=== PATIENT | male | born 1965 | race Caucasian/White ===

== ENCOUNTER → 2017-03-15 12:09 | Outpatient (REF) | payer OTHER, SELFPAY ==
[2017-03-18 15:36] LABS: Amphetamine/Metha Screen,Urine Positive ng/mL (<1000); Barbiturates Screen,Urine Negative ng/mL (<200); Benzodiazepines Screen,Urine Negative ng/mL (200); Cannabinoid Screen,Urine Negative ng/mL (<50); Cocaine Screen,Urine Negative ng/g (<300); Methadone Screen,Urine Negative ng/mL (<300); Opiate Screen,Urine Positive ng/mL (<300); Phencyclidine Screen,Urine Negative ng/mL (<25)
== END ==
LOC: LAB 12:09
PROVIDERS: Visit Provider Emergency Medicine
DX: Z79.899 Other long term (current) drug therapy (principal)
CPT/HCPCS: 80305

== ENCOUNTER 2017-03-23 01:45 | Emergency (ER) | payer OTHER, SELFPAY ==
[2017-03-23 01:53] VITALS: BP 139/78; PULSE 87; RESP 20; TEMP 36.9; O2SAT 95; BMI 27.7
--- NOTE | 2017-03-23 02:03 | XR_ITS ---
XR tibia fibula RT 2V CLINICAL INDICATION: Posttraumatic pain ITS.REASON: pain ORDERING PHYSICIAN: Usama Erazo MD PATIENT AGE: 51 years COMPARISON: None FINDINGS: No fracture or dislocation. No radio opaque foreign body. IMPRESSION: Negative right tib-fib
--- NOTE | 2017-03-23 02:03 | XR_ITS ---
XR tibia fibula LT 2V CLINICAL INDICATION: Posttraumatic pain ITS.REASON: pain ORDERING PHYSICIAN: Usama Erazo MD PATIENT AGE: 51 years COMPARISON: None FINDINGS: No fracture or dislocation. No lytic or blastic change. No radio opaque foreign body. IMPRESSION: Negative left tib-fib
--- NOTE | 2017-03-23 02:03 | XR_ITS ---
XR knee LT 3V HISTORY: Posttraumatic pain ITS.REASON: pain ORDERING PHYSICIAN: Usama Erazo MD PATIENT AGE: 51 years COMPARISON: None FINDINGS: No fracture or dislocation. No lytic or blastic change. Normal mineralization. Minor osteoarthritic changes involving all 3 compartments No other significant findings IMPRESSION: No acute finding., Mild osteoarthritis
--- NOTE | 2017-03-23 02:30 | HMH.EDLOEX ---
ED Disposition Clinical Impression: Contusion of lower extremity Qualifiers: Encounter type: initial encounter Laterality: unspecified laterality Qualified Code(s): S80.10XA - Contusion of unspecified lower leg, initial encounter Disposition: Home, Self-Care Condition on Discharge: Good Instructions: DI for Contusion Additional Instructions: see pcp for follow up Referrals: Usama Erazo MD [Primary Care Provider] - - Critical Care Critical Care Time: No Attestation: On 03/23/17, the high probability of a clinically significant, sudden or life threatening deterioration of the following system(s) required my full and direct attention, intervention and personal management. The time I documented below is in addition to time spent performing reported procedures but includes the following listed in this critical care notation. Medical Decision Making - Medical Records Medical records reviewed: Yes: I reviewed the patient's medical records. Vital Signs: 03/23/17 01:53 Temperature 98.4 F Temperature Source Oral Pulse Rate [Right Radial] 87 Respiratory Rate 20 Blood Pressure [Left Arm] 139/78 Blood Pressure Mean [Left Arm] 98 Blood Pressure Source [Left Arm] Automatic Cuff Blood Pressure Position [Left Arm] Sitting 02 Sat by Pulse Oximetry 95 Oxygen Delivery Method Room Air - Lab Data Lab results reviewed: Yes: I reviewed the patient's lab results. Orders (Tests/Meds): ORDERS Category Date Time Status XR knee LT 3V Stat Exams 03/23/17 02:03 Ordered XR tibia fibula LT 2V Stat Exams 03/23/17 02:03 Taken XR tibia fibula RT 2V Stat Exams 03/23/17 02:03 Taken - Radiology Data #1 Image(s): Knee, Tib/Fib Image Reviewed: Yes I reviewed the patient's radiology image Preliminary Findings: No Fracture Seen - Travis Inquiry Pt receiving controlled substance: No Lower Extremity Injury HPI - General Chief Complaint: Extremity Injury, Lower Stated Complaint: pain in both legs;200 lb grill fell on him Time Seen by Provider: 03/23/17 02:30 Mode of Arrival: Ambulatory Source of Information: Patient, Medical Record Limitations: No Limitations Description of Symptoms (Recalled from ER Triage Doc. by RN): bilATERAL below the knee pain reports grill fell on him, right leg abrasion - History of Present Illness HPI Narrative: pt with acute lower ext injury earlier today with pain and swelling - grill dropped on lower ext MD complaint: leg injury Onset (ago): hour(s) Type of Injury: blunt Place: home Severity: moderate Context: direct blow - Related Data Home Medications Medication Instructions Recorded Confirmed albuterol sulfate HFA 90 2 puff INHALATION Q6H 03/14/17 03/23/17 mcg/actuation aerosol inhaler aspirin 81 mg tablet,delayed 81 mg PO ONCE 03/14/17 03/23/17 release aspirin 81 mg tablet,delayed 81 mg PO ONCE 03/14/17 03/23/17 release bupropion HCl SR 150 mg tablet,12 150 mg PO QAM tab 03/14/17 03/23/17 hr sustained-release cyclobenzaprine 10 mg tablet 10 mg PO Q8H 03/14/17 03/23/17 diclofenac 1 % topical gel 1 g TOPICAL QID g 03/14/17 03/23/17 furosemide 20 mg tablet 20 mg PO ONCE 03/14/17 03/23/17 furosemide 20 mg tablet 20 mg PO ONCE 03/14/17 03/23/17 gabapentin 800 mg tablet 800 mg PO TID 03/14/17 03/23/17 insulin human U-100 NPH-regulr 40 unit SUB-Q TID ml 03/14/17 03/23/17 70-30 mix 100 unit/mL subcutaneous susp insulin syringe-needle U-100 0.5 See Dose Instructions SQ 03/14/17 03/23/17 mL 31 gauge x 5/16 .MEDSUPPLY #10 each lactulose 10 gram/15 mL oral 10 g PO ONCE 03/14/17 03/23/17 solution lisinopril 40 mg tablet 40 mg PO ONCE 03/14/17 03/23/17 oxycodone 10 mg tablet 10 mg PO Q8H PRN tab 03/14/17 03/23/17 sildenafil (antihypertensive) 20 20 mg PO ONCE tab 03/14/17 03/23/17 mg tablet trazodone 50 mg tablet 50 mg PO QHS PRN 03/14/17 03/23/17 Dextroamphetamine/Amphetamine 10 mg PO TID 03/23/17 03/23/17 [Dextroamp-Amphetamin 10 mg
--- NOTE | 2017-03-23 02:35 | ED_ITS ---
ED Disposition Clinical Impression: Contusion of lower extremity Qualifiers: Encounter type: initial encounter Laterality: unspecified laterality Qualified Code(s): S80.10XA - Contusion of unspecified lower leg, initial encounter Disposition: Home, Self-Care Condition on Discharge: Good Instructions: DI for Contusion Additional Instructions: see pcp for follow up Referrals: Usama Erazo MD [Primary Care Provider] - - Critical Care Critical Care Time: No Attestation: On 03/23/17, the high probability of a clinically significant, sudden or life threatening deterioration of the following system(s) required my full and direct attention, intervention and personal management. The time I documented below is in addition to time spent performing reported procedures but includes the following listed in this critical care notation. Medical Decision Making - Medical Records Medical records reviewed: Yes: I reviewed the patient's medical records. Vital Signs: 03/23/17 01:53 Temperature 98.4 F Temperature Source Oral Pulse Rate [Right Radial] 87 Respiratory Rate 20 Blood Pressure [Left Arm] 139/78 Blood Pressure Mean [Left Arm] 98 Blood Pressure Source [Left Arm] Automatic Cuff Blood Pressure Position [Left Arm] Sitting 02 Sat by Pulse Oximetry 95 Oxygen Delivery Method Room Air - Lab Data Lab results reviewed: Yes: I reviewed the patient's lab results. Orders (Tests/Meds): ORDERS Category Date Time Status XR knee LT 3V Stat Exams 03/23/17 02:03 Ordered XR tibia fibula LT 2V Stat Exams 03/23/17 02:03 Taken XR tibia fibula RT 2V Stat Exams 03/23/17 02:03 Taken - Radiology Data #1 Image(s): Knee, Tib/Fib Image Reviewed: Yes I reviewed the patient's radiology image Preliminary Findings: No Fracture Seen - Travis Inquiry Pt receiving controlled substance: No Lower Extremity Injury HPI - General Chief Complaint: Extremity Injury, Lower Stated Complaint: pain in both legs;200 lb grill fell on him Time Seen by Provider: 03/23/17 02:30 Mode of Arrival: Ambulatory Source of Information: Patient, Medical Record Limitations: No Limitations Description of Symptoms (Recalled from ER Triage Doc. by RN): bilATERAL below the knee pain reports grill fell on him, right leg abrasion - History of Present Illness HPI Narrative: pt with acute lower ext injury earlier today with pain and swelling - grill dropped on lower ext MD complaint: leg injury Onset (ago): hour(s) Type of Injury: blunt Place: home Severity: moderate Context: direct blow - Related Data Home Medications Medication Instructions Recorded Confirmed albuterol sulfate HFA 90 2 puff INHALATION Q6H 03/14/17 03/23/17 mcg/actuation aerosol inhaler aspirin 81 mg tablet,delayed 81 mg PO ONCE 03/14/17 03/23/17 release aspirin 81 mg tablet,delayed 81 mg PO ONCE 03/14/17 03/23/17 release bupropion HCl SR 150 mg tablet,12 150 mg PO QAM tab 03/14/17 03/23/17 hr sustained-release cyclobenzaprine 10 mg tablet 10 mg PO Q8H 03/14/17 03/23/17 diclofenac 1 % topical gel 1 g TOPICAL QID g 03/14/17 03/23/17 furosemide 20 mg tablet 20 mg PO ONCE 03/14/17 03/23/17 furosemide 20 mg tablet 20 mg PO ONCE 03/14/17 03/23/17 gabapentin 800 mg tablet 800 mg PO TID 03/14/17
[2017-03-23 03:01] VITALS: BP 136/72; PULSE 78; RESP 22; TEMP 37; O2SAT 95
== END 2017-03-23 03:04 | disposition home or self-care (01) ==
PROVIDERS: Emergency Provider Emergency Medicine; Family Provider Family Medicine; PCP Emergency Medicine
DX: S80.11XA Contusion of right lower leg, initial encounter (principal); S80.12XA Contusion of left lower leg, initial encounter; E10.9 Type 1 diabetes mellitus without complications; Z79.4 Long term (current) use of insulin; I10 Essential (primary) hypertension; F41.9 Anxiety disorder, unspecified; K21.9 Gastro-esophageal reflux disease without esophagitis; J44.9 Chronic obstructive pulmonary disease, unspecified; F17.210 Nicotine dependence, cigarettes, uncomplicated; Z96.641 Presence of right artificial hip joint; W22.8XXA Striking against or struck by other objects, initial encounter; Y92.009 Unspecified place in unspecified non-institutional (private) residence as the place of occurrence of the external cause
CPT/HCPCS: 73562; 73590; 99282

== ENCOUNTER → 2017-05-14 08:36 | Outpatient (REF) | payer OTHER, SELFPAY ==
[2017-05-14 10:32] LABS: Amphetamine/Metha Screen,Urine Positive ng/mL (<1000); Barbiturates Screen,Urine Negative ng/mL (<200); Benzodiazepines Screen,Urine Negative ng/mL (200); Cannabinoid Screen,Urine Negative ng/mL (<50); Cocaine Screen,Urine Negative ng/g (<300); Methadone Screen,Urine Negative ng/mL (<300); Opiate Screen,Urine Positive ng/mL (<300); Phencyclidine Screen,Urine Negative ng/mL (<25)
== END ==
LOC: LAB 08:36
PROVIDERS: Visit Provider Emergency Medicine
DX: Z79.899 Other long term (current) drug therapy (principal)
CPT/HCPCS: 80305

== ENCOUNTER → 2017-07-23 13:30 | Outpatient (REF) | payer OTHER, SELFPAY ==
[2017-07-23 17:53] LABS: Amphetamine/Metha Screen,Urine Positive ng/mL (<1000); Barbiturates Screen,Urine Negative ng/mL (<200); Benzodiazepines Screen,Urine Negative ng/mL (200); Cannabinoid Screen,Urine Negative ng/mL (<50); Cocaine Screen,Urine Negative ng/g (<300); Methadone Screen,Urine Negative ng/mL (<300); Opiate Screen,Urine Negative ng/mL (<300); Phencyclidine Screen,Urine Negative ng/mL (<25)
== END ==
LOC: LAB 13:30
PROVIDERS: Visit Provider Emergency Medicine
DX: Z79.899 Other long term (current) drug therapy (principal)
CPT/HCPCS: 80305

== ENCOUNTER 2017-09-18 13:33 | Outpatient (CLI) | payer OTHER, SELFPAY ==
[2017-09-18 15:17] VITALS: BMI 25.2
[2017-09-18 15:40] VITALS: BP 154/77; PULSE 67; RESP 18; TEMP 36.7; O2SAT 96
[2017-09-18 15:58] LABS: Hemoglobin A1C 9.5 % (0.0-7.0)
[2017-09-18 15:59] LABS: Anion Gap 8.6 mEq/L (5-15); Blood Urea Nitrogen 16 mg/dL (7-18); Calcium 8.9 mg/dL (8.5-10.1); Carbon Dioxide 28 mmol/L (21.0-32.0); Chloride 102 mmol/L (98-107); Creatinine Clearance Estimated 99 mL/min (0-300); Creatinine,Serum 1.09 mg/dL (0.70-1.30); Estimated Glomerular Filt Rate 72 ml/min (>60); GFR (African American) 87 ML/MIN (>60); Potassium 4.6 mmoL/L (3.5-5.1); Sodium 134 mmol/L (136-145)
[2017-09-18 16:02] LABS: Glucose 547 mg/dL (74-106)
[2017-09-18 16:30] VITALS: BP 151/76; PULSE 69; RESP 18; O2SAT 97
[2017-09-18 16:36] LABS: POC Glucose,Bedside 398 (70-110)
[2017-09-18 16:40] VITALS: BP 149/78; PULSE 68; RESP 18; O2SAT 97
[2017-09-18 18:28] LABS: Amphetamine/Metha Screen,Urine Negative ng/mL (<1000); Barbiturates Screen,Urine Negative ng/mL (<200); Benzodiazepines Screen,Urine Negative ng/mL (<200); Cannabinoid Screen,Urine Negative ng/mL (<50); Cocaine Screen,Urine Negative ng/mL (<300); Methadone Screen,Urine Negative ng/mL (<300); Opiate Screen,Urine Negative ng/mL (<300); Phencyclidine Screen,Urine Negative ng/mL (<25)
== END 2017-09-18 16:40 | disposition home or self-care (01) ==
LOC: LAB 13:34 → INF 15:12
PROVIDERS: PCP Emergency Medicine; Visit Provider Emergency Medicine
DX: K75.9 Inflammatory liver disease, unspecified (principal); E11.9 Type 2 diabetes mellitus without complications; I10 Essential (primary) hypertension
CPT/HCPCS: 80048; 80305; 82962; 83036; 96360

== ENCOUNTER → 2017-11-15 16:00 | Outpatient (REF) | payer OTHER, SELFPAY ==
[2017-11-15 18:45] LABS: Amphetamine/Metha Screen,Urine Positive ng/mL (<1000); Barbiturates Screen,Urine Negative ng/mL (<200); Benzodiazepines Screen,Urine Negative ng/mL (<200); Cannabinoid Screen,Urine Negative ng/mL (<50); Cocaine Screen,Urine Negative ng/mL (<300); Methadone Screen,Urine Negative ng/mL (<300); Opiate Screen,Urine Positive ng/mL (<300); Phencyclidine Screen,Urine Negative ng/mL (<25)
== END ==
LOC: LAB 16:00
PROVIDERS: Visit Provider Emergency Medicine
DX: Z79.899 Other long term (current) drug therapy (principal)
CPT/HCPCS: 80305

== ENCOUNTER → 2017-12-23 14:02 | Outpatient (CLI) | payer OTHER, SELFPAY ==
--- NOTE | 2017-12-23 14:06 | XR_ITS ---
XR foot wt bearing RT 3V HISTORY: ITS.REASON: pain ORDERING PHYSICIAN: Hanh Ortiz DPM PATIENT AGE: 52 years COMPARISON: None. FINDINGS: No fracture or dislocation. No lytic or blastic change. There is normal mineralization.. The joint spaces are well-preserved. No significant degenerative/arthritic changes. No erosive changes evident. There is some deformity of the proximal phalanx of the great toe which could be due to old fracture Hypertrophic changes are present along the plantar surface of the calcaneus. IMPRESSION: 1. Hypertrophic changes of the plantar surface of the calcaneus. 2. Possible old fracture of the proximal phalanx of the great toe
--- NOTE | 2017-12-23 14:06 | XR_ITS ---
XR foot wt bearing LT 3V HISTORY: ITS.REASON: pain ORDERING PHYSICIAN: Hanh Ortiz DPM PATIENT AGE: 52 years COMPARISON: None FINDINGS: No fracture or dislocation. No lytic or blastic change. There is normal mineralization.. The joint spaces are well-preserved. No significant degenerative/arthritic changes. No erosive changes evident. There is a 9 mm bone spur of the calcaneus IMPRESSION: Calcaneal bone spur otherwise negative
== END ==
PROVIDERS: PCP Family Medicine; Visit Provider Podiatrist
DX: M79.674 Pain in right toe(s) (principal); M79.675 Pain in left toe(s); M20.41 Other hammer toe(s) (acquired), right foot
CPT/HCPCS: 73630

== ENCOUNTER → 2018-01-10 13:22 | Outpatient (CLI) | payer OTHER, SELFPAY ==
[2018-01-10 14:48] LABS: Amphetamine/Metha Screen,Urine Positive ng/mL (<1000); Barbiturates Screen,Urine Negative ng/mL (<200); Benzodiazepines Screen,Urine Negative ng/mL (<200); Cannabinoid Screen,Urine Negative ng/mL (<50); Cocaine Screen,Urine Negative ng/mL (<300); Methadone Screen,Urine Negative ng/mL (<300); Opiate Screen,Urine Positive ng/mL (<300); Phencyclidine Screen,Urine Negative ng/mL (<25)
== END ==
PROVIDERS: PCP Emergency Medicine; Visit Provider Emergency Medicine
DX: F90.9 Attention-deficit hyperactivity disorder, unspecified type (principal)
CPT/HCPCS: 80305

== ENCOUNTER → 2018-03-10 14:03 | Outpatient (CLI) | payer OTHER, SELFPAY ==
[2018-03-10 16:26] LABS: Amphetamine/Metha Screen,Urine Positive ng/mL (<1000); Barbiturates Screen,Urine Negative ng/mL (<200); Benzodiazepines Screen,Urine Negative ng/mL (<200); Cannabinoid Screen,Urine Negative ng/mL (<50); Cocaine Screen,Urine Negative ng/mL (<300); Methadone Screen,Urine Negative ng/mL (<300); Opiate Screen,Urine Negative ng/mL (<300); Phencyclidine Screen,Urine Negative ng/mL (<25)
== END ==
PROVIDERS: Visit Provider Emergency Medicine
DX: Z79.899 Other long term (current) drug therapy (principal)
CPT/HCPCS: 80305

== ENCOUNTER → 2018-05-07 14:11 | Outpatient (CLI) | payer OTHER, SELFPAY ==
[2018-05-07 14:57] LABS: Amphetamine/Metha Screen,Urine Negative ng/mL (<1000); Barbiturates Screen,Urine Negative ng/mL (<200); Benzodiazepines Screen,Urine Negative ng/mL (<200); Cannabinoid Screen,Urine Negative ng/mL (<50); Cocaine Screen,Urine Negative ng/mL (<300); Methadone Screen,Urine Negative ng/mL (<300); Opiate Screen,Urine Negative ng/mL (<300); Phencyclidine Screen,Urine Negative ng/mL (<25)
[2018-05-07 18:46] LABS: Alanine Aminotransferase 33 U/L (12-78); Albumin Level 2.6 gm/dL (3.4-5.0); Albumin/Globulin Ratio 0.7 (1.1-1.8); Alkaline Phosphatase 123 U/L (46-116); Anion Gap 13.1 mEq/L (5-15); Aspartate Amino Transferase 18 U/L (15-37); Bilirubin,Total 1.2 mg/dL (0.2-1.0); Blood Urea Nitrogen 10 mg/dL (7-18); Calcium 8.4 mg/dL (8.5-10.1); Carbon Dioxide 26 mmol/L (21.0-32.0); Chloride 105 mmol/L (98-107); Chol/HDL Ratio 3.2 (1-3.5); Cholesterol 137 mg/dL (140-200); Creatinine,Serum 0.77 mg/dL (0.70-1.30); Estimated Glomerular Filt Rate 107 ml/min (>60); Free T4 (Free Thyroxine) 1.06 ng/dl (0.76-1.46); GFR (African American) 129 ML/MIN (>60); Globulin 3.5 gm/dl (1.3-3.2); Glucose 390 mg/dL (74-106); HDL Cholesterol 43 mg/dL (27-67); LDL Cholesterol 80 mg/dL (0-130); Potassium 4.1 mmoL/L (3.5-5.1); Sodium 140 mmol/L (136-145); Thyroid Stimulating Hormone 1.24 uIU/ml (0.358-3.740); Total Protein,Serum 6.1 gm/dL (6.4-8.2); Triglycerides 68 mg/dL (30-200); VLDL Cholesterol 14 mg/dL (0-40)
[2018-05-07 18:58] LABS: Basophils # 0.1 K/mm3 (0-0.2); Basophils % 0.9 % (0.1-2.0); Eosinophils # 0.1 K/mm3 (0.0-0.4); Eosinophils % 1.9 % (0.1-12.0); Hematocrit 45.6 % (42.0-52.0); Hemoglobin 14.6 g/dL (14.1-18.0); Lymphocytes # 2.1 K/mm3 (0.7-4.5); Lymphocytes % 32.7 % (10-50); Mean Corpuscular Hemoglobin 31.5 pg (27.0-31.2); Mean Corpuscular Volume 98.5 fl (80-94); Mean Platelet Volume 9.8 fl (7.4-10.4); Monocytes # 0.4 K/mm3 (0.1-1.0); Monocytes % 6.8 % (1.7-9.3); Neutrophils # 3.6 K/mm3 (1.8-7.8); Neutrophils % 57.6 % (37.0-80.0); Platelet Count 162 K/mm3 (142-424); Red Blood Count 4.63 M/mm3 (4.60-6.20); Red Cell Distribution Width 14.6 % (11.5-17.5); White Blood Count 6.3 K/mm3 (4.8-10.8)
[2018-05-07 20:36] LABS: Hemoglobin A1C 8.3 % (0.0-7.0)
[2018-05-09 07:28] LABS: Vitamin D 25 Hydroxy 19.3 ng/mL (30.0-100.0)
[2018-05-09 09:29] LABS: Creatinine, Urine 37.1 mg/dL (Not Estab.); Microalbumin, Urine 96.3 ug/mL (Not Estab.)
[2018-05-12 22:07] LABS: Amphetamines Negative (Cutoff=500)
== END ==
PROVIDERS: Visit Provider Emergency Medicine
DX: Z79.899 Other long term (current) drug therapy (principal); F90.9 Attention-deficit hyperactivity disorder, unspecified type; E11.9 Type 2 diabetes mellitus without complications; Z79.4 Long term (current) use of insulin
CPT/HCPCS: 80053; 80061; 80305; 80324; 82043; 82570; 82652; 83036; 84439; 84443; 85025

== ENCOUNTER → 2018-07-04 17:26 | Outpatient (CLI) | payer OTHER, SELFPAY ==
[2018-07-04 19:11] LABS: Amphetamine/Metha Screen,Urine Positive ng/mL (<1000); Barbiturates Screen,Urine Negative ng/mL (<200); Benzodiazepines Screen,Urine Negative ng/mL (<200); Cannabinoid Screen,Urine Negative ng/mL (<50); Cocaine Screen,Urine Negative ng/mL (<300); Methadone Screen,Urine Negative ng/mL (<300); Opiate Screen,Urine Negative ng/mL (<300); Phencyclidine Screen,Urine Negative ng/mL (<25)
== END ==
PROVIDERS: Visit Provider Emergency Medicine
DX: Z79.899 Other long term (current) drug therapy (principal)
CPT/HCPCS: 80305

== ENCOUNTER → 2018-09-01 17:17 | Outpatient (CLI) | payer OTHER, SELFPAY ==
[2018-09-01 20:54] LABS: Amphetamine/Metha Screen,Urine Positive ng/mL (<1000); Barbiturates Screen,Urine Negative ng/mL (<200); Benzodiazepines Screen,Urine Negative ng/mL (<200); Cannabinoid Screen,Urine Negative ng/mL (<50); Cocaine Screen,Urine Negative ng/mL (<300); Methadone Screen,Urine Negative ng/mL (<300); Opiate Screen,Urine Negative ng/mL (<300); Phencyclidine Screen,Urine Negative ng/mL (<25)
== END ==
PROVIDERS: Visit Provider Emergency Medicine
DX: F90.9 Attention-deficit hyperactivity disorder, unspecified type (principal)
CPT/HCPCS: 80305

== ENCOUNTER → 2019-10-28 18:17 | Outpatient (CLI) | payer MEDICAID, SELFPAY ==
[2019-10-28 18:42] LABS: Basophils # 0.1 K/mm3 (0-0.2); Basophils % 0.9 % (0.1-2.0); Eosinophils # 0.3 K/mm3 (0.0-0.4); Eosinophils % 4.2 % (0.1-12.0); Hematocrit 41.9 % (42.0-52.0); Hemoglobin 13.9 g/dL (14.1-18.0); Lymphocytes # 2.4 K/mm3 (0.7-4.5); Mean Corpuscular HGB Conc 33.3 g/dL (31.8-35.4); Mean Corpuscular Hemoglobin 32.9 pg (27.0-31.2); Mean Platelet Volume 9.9 fl (7.4-10.4); Monocytes # 0.8 K/mm3 (0.1-1.0); Monocytes % 11.7 % (1.7-9.3); Neutrophils # 3.1 K/mm3 (1.8-7.8); Neutrophils % 47.2 % (37.0-80.0); Platelet Count 157 K/mm3 (142-424); Red Blood Count 4.23 M/mm3 (4.60-6.20); Red Cell Distribution Width 14.1 % (11.5-17.5); White Blood Count 6.6 K/mm3 (4.8-10.8)
[2019-10-28 18:45] LABS: Sodium 142 mmol/L (136-145)
[2019-10-28 18:46] LABS: Chloride 108 mmol/L (98-107)
[2019-10-28 18:48] LABS: Alanine Aminotransferase 33 U/L (12-78); Albumin Level 3.2 g/dl (3.5-5.0); Alkaline Phosphatase 101 U/L (38-126); Aspartate Amino Transferase 48 U/L (17-59); Bilirubin,Total 2.5 mg/dl (0.2-1.3); Blood Urea Nitrogen 24 mg/dl (9-20); Carbon Dioxide 26 mmol/L (22.0-30.0); Estimated Glomerular Filt Rate 78 ml/min (>60); GFR (African American) 95 ML/MIN (>60); Globulin 3.1 g/dL (1.3-3.2); Total Protein,Serum 6.3 g/dl (6.3-8.2)
[2019-10-28 18:49] LABS: Calcium 9.9 mg/dl (8.4-10.2); Glucose 234 mg/dl (74-100)
== END ==
PROVIDERS: Visit Provider Emergency Medicine
DX: E11.9 Type 2 diabetes mellitus without complications (principal); Z79.4 Long term (current) use of insulin
CPT/HCPCS: 80053; 85025

== ENCOUNTER → 2020-04-04 19:39 | Outpatient (CLI) | payer MEDICAID, SELFPAY ==
[2020-04-04 21:01] LABS: Amphetamine/Metha Screen,Urine Positive ng/ml (<1000)
[2020-04-04 21:02] LABS: Barbiturates Screen,Urine Negative ng/ml (<200); Benzodiazepines Screen,Urine Negative ng/ml (<200)
[2020-04-04 21:03] LABS: Cannabinoid Screen,Urine Negative ng/ml (<50); Cocaine Screen,Urine Negative ng/ml (<300)
[2020-04-04 21:04] LABS: Methadone Screen,Urine Negative ng/ml (<300)
[2020-04-04 21:05] LABS: Opiate Screen,Urine Negative ng/ml (<300); Phencyclidine Screen,Urine Negative ng/ml (<25)
[2020-04-04 21:30] LABS: Basophils # 0.1 K/mm3 (0-0.2); Basophils % 1.2 % (0.1-2.0); Eosinophils # 0.2 K/mm3 (0.0-0.4); Eosinophils % 3.2 % (0.1-12.0); Lymphocytes % 29.1 % (10-50); Mean Corpuscular HGB Conc 31.9 g/dL (31.8-35.4); Mean Corpuscular Hemoglobin 31.3 pg (27.0-31.2); Mean Platelet Volume 9.7 fl (7.4-10.4); Monocytes # 0.5 K/mm3 (0.1-1.0); Neutrophils # 4.1 K/mm3 (1.8-7.8); Neutrophils % 59.6 % (37.0-80.0); Platelet Count 177 K/mm3 (142-424); Red Blood Count 4.49 M/mm3 (4.60-6.20); Red Cell Distribution Width 14.3 % (11.5-17.5); White Blood Count 6.9 K/mm3 (4.8-10.8)
[2020-04-04 21:34] LABS: Creatinine,Urine Random 111 mg/dL (Not Estab.); Microalbumin/Creatinine Ratio 478.5
[2020-04-04 21:35] LABS: Chloride 113 mmol/L (98-107); Sodium 144 mmol/L (136-145)
[2020-04-04 21:38] LABS: Alanine Aminotransferase 35 U/L (12-78); Albumin Level 3.3 g/dl (3.5-5.0); Alkaline Phosphatase 117 U/L (38-126); Aspartate Amino Transferase 38 U/L (17-59); Bilirubin,Total 1.3 mg/dl (0.2-1.3); Blood Urea Nitrogen 16 mg/dl (9-20); Carbon Dioxide 25 mmol/L (22.0-30.0); Cholesterol 171 mg/dl (140-200); Estimated Glomerular Filt Rate 88 ml/min (>60); GFR (African American) 107 ML/MIN (>60); Globulin 3.4 g/dL (1.3-3.2); Total Protein,Serum 6.7 g/dl (6.3-8.2); Triglycerides 68 mg/dl (30-150); VLDL Cholesterol 14 mg/dL (0-40)
[2020-04-04 21:39] LABS: Chol/HDL Ratio 2.7 (1-3.5); Glucose 239 mg/dl (74-100); HDL Cholesterol 64 mg/dl (40-60)
[2020-04-04 21:50] LABS: Direct LDL Cholesterol 86.12 mg/dL (100-129)
[2020-04-04 21:59] LABS: Free T4 (Free Thyroxine) 1.15 ng/dl (0.78-2.19)
[2020-04-04 22:12] LABS: Prostate Specific Ag Screen 0.5 ng/ml (0.0-4.0)
[2020-04-04 22:13] LABS: Thyroid Stimulating Hormone 2.69 uIU/mL (0.465-4.68)
[2020-04-04 22:29] LABS: Hemoglobin A1C 8.8 % (4.0-6.0)
== END ==
PROVIDERS: Visit Provider Emergency Medicine
DX: E11.9 Type 2 diabetes mellitus without complications (principal); Z79.4 Long term (current) use of insulin; Z79.899 Other long term (current) drug therapy; Z12.5 Encounter for screening for malignant neoplasm of prostate
CPT/HCPCS: 80053; 80061; 80305; 82043; 82570; 83036; 84439; 84443; 85025; G0103

== ENCOUNTER → 2020-05-06 16:32 | Outpatient (CLI) | payer MEDICAID, SELFPAY ==
[2020-05-06 17:14] LABS: Amphetamine/Metha Screen,Urine Positive ng/ml (<1000)
[2020-05-06 17:15] LABS: Barbiturates Screen,Urine Negative ng/ml (<200)
[2020-05-06 17:16] LABS: Benzodiazepines Screen,Urine Negative ng/ml (<200); Cannabinoid Screen,Urine Negative ng/ml (<50)
[2020-05-06 17:17] LABS: Cocaine Screen,Urine Negative ng/ml (<300); Methadone Screen,Urine Negative ng/ml (<300)
[2020-05-06 17:18] LABS: Opiate Screen,Urine Negative ng/ml (<300)
[2020-05-06 17:19] LABS: Phencyclidine Screen,Urine Negative ng/ml (<25)
== END ==
PROVIDERS: Visit Provider Emergency Medicine
DX: Z79.899 Other long term (current) drug therapy (principal)
CPT/HCPCS: 80305

== ENCOUNTER → 2020-06-29 12:00 | Outpatient (CLI) | payer MEDICAID, SELFPAY ==
[2020-06-30 09:56] LABS: Benzodiazepines Screen,Urine Negative ng/ml (<200)
[2020-06-30 09:57] LABS: Amphetamine/Metha Screen,Urine Positive ng/ml (<1000); Barbiturates Screen,Urine Negative ng/ml (<200)
[2020-06-30 09:58] LABS: Cannabinoid Screen,Urine Negative ng/ml (<50); Cocaine Screen,Urine Negative ng/ml (<300)
[2020-06-30 09:59] LABS: Methadone Screen,Urine Negative ng/ml (<300)
[2020-06-30 10:00] LABS: Opiate Screen,Urine Negative ng/ml (<300); Phencyclidine Screen,Urine Negative ng/ml (<25)
== END ==
PROVIDERS: Visit Provider Emergency Medicine
DX: Z79.899 Other long term (current) drug therapy (principal)
CPT/HCPCS: 80305

== ENCOUNTER → 2020-08-10 17:59 | Outpatient (CLI) | payer MEDICAID, SELFPAY ==
[2020-08-10 19:17] LABS: Basophils # 0.1 K/mm3 (0-0.2); Eosinophils # 0.2 K/mm3 (0.0-0.4); Eosinophils % 3.7 % (0.1-12.0); Hematocrit 40.9 % (42.0-52.0); Lymphocytes # 1.5 K/mm3 (0.7-4.5); Lymphocytes % 24.6 % (10-50); Mean Corpuscular HGB Conc 31.7 g/dL (31.8-35.4); Mean Corpuscular Hemoglobin 30.2 pg (27.0-31.2); Mean Corpuscular Volume 95.1 fl (80-94); Mean Platelet Volume 9.5 fl (7.4-10.4); Monocytes # 0.5 K/mm3 (0.1-1.0); Monocytes % 7.5 % (1.7-9.3); Neutrophils # 3.8 K/mm3 (1.8-7.8); Neutrophils % 63.2 % (37.0-80.0); Platelet Count 170 K/mm3 (142-424); Red Cell Distribution Width 15.6 % (11.5-17.5)
[2020-08-10 19:19] LABS: Alanine Aminotransferase 28 U/L (12-78); Albumin Level 3.1 g/dl (3.5-5.0); Alkaline Phosphatase 114 U/L (38-126); Anion Gap 9.2 mEq/L (5-15); Aspartate Amino Transferase 33 U/L (17-59); Bilirubin,Total 1.8 mg/dl (0.2-1.3); Blood Urea Nitrogen 10 mg/dl (9-20); Calcium 8.7 mg/dl (8.4-10.2); Carbon Dioxide 27 mmol/L (22.0-30.0); Chloride 111 mmol/L (98-107); Chol/HDL Ratio 2.2 (1-3.5); Cholesterol 141 mg/dl (140-200); Estimated Glomerular Filt Rate 118 ml/min (>60); GFR (African American) 143 ML/MIN (>60); Glucose 209 mg/dl (74-100); HDL Cholesterol 65 mg/dl (40-60); Potassium 4.2 mmoL/L (3.5-5.1); Sodium 143 mmol/L (136-145); Total Protein,Serum 6.1 g/dl (6.3-8.2); Triglycerides 44 mg/dl (30-150); VLDL Cholesterol 9 mg/dL (0-40)
[2020-08-10 19:31] LABS: Direct LDL Cholesterol 62.16 mg/dL (100-129)
[2020-08-10 20:48] LABS: 25-OH Vitamin D, Total 21.2 ng/mL (30-100)
[2020-08-10 20:49] LABS: T4 (Thyroxine) 6.5 ug/dl (5.53-11.0)
[2020-08-10 21:43] LABS: Thyroid Stimulating Hormone 3.37 uIU/mL (0.465-4.68)
[2020-08-10 22:36] LABS: Hemoglobin A1C 8.5 % (4.0-6.0)
== END ==
PROVIDERS: Visit Provider Nurse Practitioner Family
DX: E11.9 Type 2 diabetes mellitus without complications (principal); E55.9 Vitamin D deficiency, unspecified; E66.9 Obesity, unspecified; I10 Essential (primary) hypertension
CPT/HCPCS: 80053; 80061; 82306; 83036; 84436; 84443; 85025

== ENCOUNTER → 2020-09-23 17:18 | Outpatient (CLI) | payer MEDICAID, SELFPAY ==
[2020-09-23 19:55] LABS: Barbiturates Screen,Urine Negative ng/ml (<200)
[2020-09-23 19:56] LABS: Benzodiazepines Screen,Urine Negative ng/ml (<200); Cannabinoid Screen,Urine Negative ng/ml (<50)
[2020-09-23 19:57] LABS: Cocaine Screen,Urine Negative ng/ml (<300); Methadone Screen,Urine Negative ng/ml (<300)
[2020-09-23 19:59] LABS: Opiate Screen,Urine Negative ng/ml (<300); Phencyclidine Screen,Urine Negative ng/ml (<25)
[2020-09-28 08:20] LABS: Amphetamine Positive (.); Amphetamine (GC/MS) >3000 ng/mL (Cutoff=500); Amphetamines Positive (.); Methamphetamine Positive (.); Methamphetamine (GC/MS) 4224 ng/mL (Cutoff=500)
== END ==
PROVIDERS: Visit Provider Emergency Medicine
DX: F90.9 Attention-deficit hyperactivity disorder, unspecified type (principal)
CPT/HCPCS: 80305; 80324

== ENCOUNTER → 2020-10-18 17:23 | Outpatient (CLI) | payer MEDICAID, SELFPAY ==
[2020-10-18 20:39] LABS: Amphetamine/Metha Screen,Urine Positive ng/ml (<1000)
[2020-10-18 20:40] LABS: Barbiturates Screen,Urine Negative ng/ml (<200); Benzodiazepines Screen,Urine Negative ng/ml (<200)
[2020-10-18 20:41] LABS: Cannabinoid Screen,Urine Negative ng/ml (<50)
[2020-10-18 20:42] LABS: Cocaine Screen,Urine Negative ng/ml (<300); Methadone Screen,Urine Negative ng/ml (<300)
[2020-10-18 20:43] LABS: Opiate Screen,Urine Negative ng/ml (<300); Phencyclidine Screen,Urine Negative ng/ml (<25)
== END ==
PROVIDERS: Visit Provider Emergency Medicine
DX: Z79.899 Other long term (current) drug therapy (principal)
CPT/HCPCS: 80305

== ENCOUNTER 2020-11-24 11:00 | Emergency (ER) | payer MEDICAID, SELFPAY ==
[2020-11-24 11:01] VITALS: BP 175/83; PULSE 93; RESP 16; TEMP 36.8; O2SAT 98; BMI 31.4
--- NOTE | 2020-11-24 11:16 | HMH.EDGENADL ---
ED Disposition Clinical Impression: Hand fracture, right Qualifiers: Encounter type: initial encounter Fracture type: closed Qualified Code(s): S62.91XA - Unspecified fracture of right wrist and hand, initial encounter for closed fracture Disposition: Home, Self-Care Condition on Discharge: Good Instructions: DI for a Hand Fracture, How to Take Care of Your Splint Additional Instructions: Additional instructions for FRACTURED (BROKEN) BONE: See Dr. Rios next week in his office. Call today to make that appointment. Treat your splint like you would a cast: Do not get it wet (cover with a plastic bag while bathing or showering). If the splint feels too tight, you may loosen the rolf wrap covering it, but do not remove the splint. You may ice the fracture by applying an ice pack over the top of the splint, without removing the splint. Return to an emergency department immediately if you have uncontrollable pain, loss of feeling or inability to move your injured extremity. Additional instructions for CONTROLLED SUBSTANCES: You have been prescribed a medication that is a controlled substance. Controlled substances include pain medications known as opiates and sedative nerve medications known as benzodiazepines. Tramadol, fioricet, and gabapentin are also controlled substances. Some common opiates include: Codeine (such as Tylenol #3) Hydrocodone (Vicodin, Lortab, Lorcet, [place]) Oxycodone (Percocet, Percodan, Oxycodone, Oxy IR) Some common benzodiazepines include: Diazepam (Valium) Lorazepam (Ativan) Alprazolam (Xanax) Clonazepam (Klonopin) Oxazepam (Serax) All of these controlled substances are highly addictive and frequently abused. Misuse can and frequently does lead to addiction as well as overdose and . Medication should be stored in a locked cabinet or other secure storage unit. Do not store the medication in a motor vehicle. Short term supplies, 3 days or less, are prescribed because of the highly addictive nature of the medication. Any of the controlled substance medication NOT taken should be disposed of properly and NOT SAVED. The recommended method of disposing of unused medications is: Place the medicines in a sealable plastic bag. If the medicine is a solid, crush it or add water to dissolve it. Add something undesirable (cat litter, coffee grounds, etc.) Dispose of sealed bag in household trash Do not flush or pour unused medicines down a sink or drain. Controlled substances should not be shared, given away or sold. Because of the addictive nature and frequent abuse, these medications are sometimes stolen. These medications should be kept in a safe place where they cannot be stolen. Do not keep them in your car or purse. Lost or stolen prescriptions for controlled substances WILL NOT BE REFILLED in this emergency department, regardless of whether a police report was filed. Prescriptions: Oxycodone HCl/Acetaminophen [Percocet 10-325 mg Tablet] 1 tab PO Q6H PRN #10 tab PRN Reason: Moderate To Severe Pain Transmission Status: Sent to [facility] Referrals: Usama Erazo MD [Primary Care Provider] - Owen Rios MD [Staff Physician] - - Critical Care Critical Care Time: No Attestation: On , the high probability of a clinically significant, sudden or life threatening deterioration of the following system(s) required my full and direct attention, intervention and personal management. The time I documented below is in addition to time spent performing reported procedures but includes the following listed in this critical care notation. Medical Decision Making - Travis Inquiry Pt receiving controlled substance: Yes Travis was queried for this patient: Yes Risks and benefits of using a controlled substance: were discussed with pt by me Vital Signs: 11/24/20 11:01 Temperature 98.3 F Temperature Source Oral Pulse Rate [Right] 93 H Respiratory Rate 16 Blood
--- NOTE | 2020-11-24 11:25 | XR_ITS ---
PROCEDURE: XR HAND RT MIN 3V CLINICAL INDICATION: fall Pain COMPARISON: No exams were available for comparison FINDINGS: Mildly displaced fracture involves the base of the proximal 1st phalanx of the 5th finger. The distal fracture fragment is displaced anteriorly by approximately 3 mm. There is an additional nondisplaced fracture involving the proximal aspect of the proximal phalanx of the 4th finger. Fingers are in slightly flexed position. There are bone plates along the dorsal aspect the 4th and 5th metacarpals. In the central aspect of the 5th metacarpal bone plate there is fracture of the bone plate with mild anterior displacement of the distal fracture fragment by approximately 2 mm. The fracture occurs between the 3rd and 4th screw. There is also suspected nondisplaced fracture involving the central aspect of the 4th metacarpal bone plate. There is mild anterior angulation of the distal aspect of both bone plates. IMPRESSION: 1. Fractures of the proximal phalanx of the 4th and 5th fingers as described above. 2. Fracture of the 4th and 5th metacarpal bone plates. The 5th metacarpal bone plate fracture is slightly displaced. Dictated by: Van Harvey MD 11/24/2020 12:25 Van Harvey MD in [place] 11/24/2020 12:25
--- NOTE | 2020-11-24 12:04 | PC.NURSE ---
Dr. Rios paged
--- NOTE | 2020-11-24 13:01 | PC.NURSE ---
Called care management to come and speak with patient about finding a ride home.
--- NOTE | 2020-11-24 13:50 | PC.NURSE ---
Pt has been up walking around room and eating lunch and not wanting to take his vitals. Advises it is fine and he is fine. Went in to d/c patient and he again refused vitals. Pt asked if I would check his sugar due to him thinking it was high. FSBS was 306. Pt advised he would give himself his insulin. Pt d/c to waiting room and care management advised his ride would be coming from [place]. Updated pt on the plan. Agreeable and d/c'ed to [facility]
--- NOTE | 2020-11-24 14:01 | CARE MANAGER ---
Contacted [facility] transit out of [place]. Patient will be picked up as soon as they can get here and taken to home address. RICHI Sr
[2020-11-24 14:04] VITALS: BP 173/85; PULSE 74; RESP 16; TEMP 36.8; O2SAT 98
[2020-11-24 14:14] LABS: POC Glucose,Bedside 326 (70-110)
== END 2020-11-24 14:05 | disposition home or self-care (01) ==
PROVIDERS: Emergency Provider Emergency Medicine; PCP Emergency Medicine
DX: S62.604A Fracture of unspecified phalanx of right ring finger, initial encounter for closed fracture (principal); S62.646A Nondisplaced fracture of proximal phalanx of right little finger, initial encounter for closed fracture; S62.304A Unspecified fracture of fourth metacarpal bone, right hand, initial encounter for closed fracture; S62.306A Unspecified fracture of fifth metacarpal bone, right hand, initial encounter for closed fracture; W01.0XXA Fall on same level from slipping, tripping and stumbling without subsequent striking against object, initial encounter; Y92.89 Other specified places as the place of occurrence of the external cause; K21.9 Gastro-esophageal reflux disease without esophagitis; E11.9 Type 2 diabetes mellitus without complications; I10 Essential (primary) hypertension; J44.9 Chronic obstructive pulmonary disease, unspecified; F17.210 Nicotine dependence, cigarettes, uncomplicated
CPT/HCPCS: 29125; 73130; 82962; 99283

== ENCOUNTER → 2021-01-09 17:29 | Outpatient (CLI) | payer MEDICAID, SELFPAY ==
[2021-01-09 20:36] LABS: Amphetamine/Metha Screen,Urine Positive ng/ml (<1000); Barbiturates Screen,Urine Negative ng/ml (<200)
[2021-01-09 20:37] LABS: Benzodiazepines Screen,Urine Negative ng/ml (<200); Cannabinoid Screen,Urine Positive ng/ml (<50)
[2021-01-09 20:38] LABS: Cocaine Screen,Urine Negative ng/ml (<300)
[2021-01-09 20:39] LABS: Methadone Screen,Urine Negative ng/ml (<300); Opiate Screen,Urine Positive ng/ml (<300)
[2021-01-09 20:40] LABS: Phencyclidine Screen,Urine Negative ng/ml (<25)
== END ==
PROVIDERS: Visit Provider Emergency Medicine
DX: Z79.899 Other long term (current) drug therapy (principal)
CPT/HCPCS: 80305

== ENCOUNTER 2021-02-06 15:39 | Emergency (ER) | payer MEDICAID, SELFPAY ==
[2021-02-06 15:40] VITALS: BP 193/111; PULSE 127; RESP 18; TEMP 37; O2SAT 98; BMI 27.6
--- NOTE | 2021-02-06 15:51 | HMH.EDGENADL ---
ED Disposition Clinical Impression: Uncontrolled hypertension Chronic pain Qualifiers: Chronic pain type: other chronic pain Qualified Code(s): G89.29 - Other chronic pain Disposition: Home, Self-Care Condition on Discharge: Good Instructions: DI for Chronic Pain -- Adult Additional Instructions: follow up pcp, return fotr worse or any concerns Referrals: Usama Erazo MD [Primary Care Provider] - - Critical Care Critical Care Time: No Attestation: On , the high probability of a clinically significant, sudden or life threatening deterioration of the following system(s) required my full and direct attention, intervention and personal management. The time I documented below is in addition to time spent performing reported procedures but includes the following listed in this critical care notation. Medical Decision Making - Travis Inquiry Pt receiving controlled substance: No Travis was queried for this patient: No Vital Signs: 02/06/21 15:40 02/06/21 16:09 Temperature 98.6 F 98.6 F Temperature Source Oral Pulse Rate 120 H Pulse Rate [Left Radial] 127 H Respiratory Rate 18 20 Blood Pressure 170/90 H Blood Pressure [Right Arm] 193/111 H Blood Pressure Mean [Right Arm] 138 Blood Pressure Source Manual Cuff/ Auscultation Blood Pressure Source [Right Arm] Automatic Cuff Blood Pressure Position Sitting Blood Pressure Position [Right Arm] Sitting 02 Sat by Pulse Oximetry 98 Oxygen Delivery Method Room Air Room Air Orders (Tests/Meds): ED MEDICATIONS Discontinued Medications Generic Name Dose Route Start Last Admin Trade Name Hiteshq PRN Reason Stop Dose Admin Clonidine HCl 0.1 mg 02/06/21 15:50 02/06/21 15:57 Clonidine 0.1mg Tablet PO 02/06/21 15:51 0.1 mg ONCE ONE Administration Oxycodone/Acetaminophen 1 each 02/06/21 15:50 02/06/21 15:57 Oxycodone 10mg W/Apap 325mg Tablet PO 02/06/21 15:51 1 each ONCE ONE Administration Medical Decision Narrative: pt says he has to leave, says he has to go home, has ride in waiting room, appears weel, advised to wait for med time, r/b/a explained General Adult HPI - General Stated complaint: sent by Dr Ortiz for HBP Time Seen by Provider: 02/06/21 15:51 Source of Information: Patient Limitations: No Limitations - History of Present Illness HPI narrative: sent by teachers assistant for elev BP, pt says he has BP meds takes them but is out of his chronic pain meds few days and thinks its due to pain inhis hands and knees, otherwise no complaints Radiation: non-radiation Severity: moderate Relieving factors: none Exacerbating factors: none Associated symptoms: denies other symptoms - Related Data Home Medications Medication Instructions Recorded Confirmed lisinopril 40 mg tablet PO 30 Days #30 tab 12/23/17 02/06/21 amlodipine 10 mg tablet 10 mg PO DAILY 10/28/19 02/06/21 cetirizine 10 mg tablet 10 mg PO DAILY 10/28/19 02/06/21 levalbuterol tartrate 45 2 inh INHALATION Q8H g 10/28/19 02/06/21 mcg/actuation aerosol inhaler topiramate 50 mg tablet 50 mg PO DAILY tab 10/28/19 02/06/21 blood sugar diagnostic See Rx Instructions .ROUTE 12/01/19 02/06/21 .MEDSUPPLY #10 each lactulose 10 gram/15 mL oral PO BID ml 12/01/19 02/06/21 solution omeprazole 40 mg capsule,delayed 40 mg PO DAILY cap 01/27/20 02/06/21 release aspirin 81 mg tablet,delayed 81 mg PO DAILY 04/04/20 02/06/21 release insulin regular human 100 unit/mL SQ 06/29/20 02/06/21 injection solution insulin syringe-needle U-100 0.5 See Rx Instructions .ROUTE 06/29/20 02/06/21 mL 30 gauge x 1/2 .MEDSUPPLY #10 each insulin human U-100 NPH-regulr 3 unit SQ ml 11/24/20 02/06/21 70-30 mix 100 unit/mL subcutaneous susp insulin syringe-needle U-100 1 mL See Rx Instructions .ROUTE 11/24/20 02/06/21 31 gauge x 5/16 .MEDSUPPLY #10 each hydrocodone 5 mg-acetaminophen 325 1 tab PO tab 02/06/21 02/06/21 mg tablet meloxicam 7.5 mg ta
[2021-02-06 16:09] VITALS: BP 170/90; PULSE 120; RESP 20; TEMP 37; O2SAT 98
== END 2021-02-06 16:15 | disposition home or self-care (01) ==
PROVIDERS: Emergency Provider Emergency Medicine; PCP Emergency Medicine
DX: I16.0 Hypertensive urgency (principal); G89.29 Other chronic pain; E11.9 Type 2 diabetes mellitus without complications; K21.9 Gastro-esophageal reflux disease without esophagitis; F41.9 Anxiety disorder, unspecified; F17.210 Nicotine dependence, cigarettes, uncomplicated; Z79.899 Other long term (current) drug therapy
CPT/HCPCS: 99281